=== PATIENT | female | born 1940 | race Two or more races ===

== ENCOUNTER 2019-06-19 04:03 | Emergency (ER) | payer MEDICARE ==
[~2019-06-19] VITALS: Ht 172.7 cm; Wt 95.3 kg
--- NOTE | 2019-06-19 04:39 | NUR ---
PT BIB [facility] TO ER C/O RIGHT SIDE PAIN NEAR THE SPINE 10/10 FROM FALLING AFTER LOSING BALANCE. PT DENIES LOSING CONSCIOUSNESS PRIOR TO FALL. PT STATES THAT SHE DID NOT HIT HER HEAD. AAOX4. NO SOB. NOT IN ANY DISTRESS. BREATHING EVENLY AND UNLABORED. CONNECTED TO MONITOR.
--- NOTE | 2019-06-19 04:42 | NUR ---
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 PT REFUSES PAIN MEDICATION AT THIS TIME.
--- NOTE | 2019-06-19 07:19 | NUR ---
REPORT RECEIVED FROM DAYANA DIAZ FOR [facility]. PATIENT IN BED, ASLEEP, EASILY AROUSABLE BY VOICE. HOOKED TO MONITOR. VSS. WILL CONTINUE TO MONITOR. AWAITING FOR [employer] INST[employer]ATION HELPER BY DAUGHTER.
--- NOTE | 2019-06-19 08:15 | NUR ---
Patient discharged to home with daughter in stable condition. Written and verbal after care instructions given. Patient verbalizes understanding of instruction.
[2019-06-19 08:17] VITALS: BP 104/59
== END 2019-06-19 08:17 | disposition home or self-care (01) ==
LOC: ER 04:03
DX: S22.31XA Fracture of one rib, right side, initial encounter for closed fracture (principal); Z98.890 Other specified postprocedural states; Z88.0 Allergy status to penicillin; Z88.1 Allergy status to other antibiotic agents; W18.39XA Other fall on same level, initial encounter; Y93.89 Activity, other specified; Y92.89 Other specified places as the place of occurrence of the external cause; Y99.8 Other external cause status
CPT/HCPCS: 71045-TC; 71100-TC; 72074-TC